=== PATIENT | male | born 1950 | race Asian ===

== ENCOUNTER 2017-10-06 13:16 | Emergency (ER) | payer BC ==
[2017-10-06 14:13] VITALS: BP 133/90
--- NOTE | 2017-10-06 14:30 | UC ---
Dizzy HPI HPI Summary: PT WAS WALKING AT WORK WHEN HE SUDDENLY BECAME DIZZY. SAT DOWN AND VOMITED X 1. FELT BETTER. GOT INTO A CAB AND CAME HERE. ONCE HERE STARTED TO FEEL DIZZY AGAIN. AT TIME OF EVALUATION PT STATES IT IS MOSTLY RESOLVED. STATES IT WAS WORSE WITH POSITION CHANGE. DENIES CP, SOB. NO FEVER OR VISUAL DISTURBANCES. STATES HE JUST FEELS A BIT TIRED NOW AND WANTS TO REST. NO SLURRING OF SPEECH OR FOCAL WEAKNESS. DENIES TINNITIS OR HEARING LOSS. - History Of Current Complaint Chief Complaint: UCGeneralIllness Stated Complaint: DIZZY Time Seen by Provider: 10/06/17 14:01 Hx Obtained From: Patient Onset/Duration: Sudden Onset, Lasting Minutes, Resolved Severity Initially: Moderate Severity Currently: None Pain Intensity: 0 Pain Scale Used: 0-10 Numeric Character: Lightheaded, Dizzy Aggravating Factor(s): Position Change Alleviating Factor(s): Rest Associated Signs And Symptoms: Positive: Vomiting. Negative: Diaphoresis, Tinnitus, Chest Pain, SOB, Palpitations, Unsteady Gait, Visual Changes, Change In Medication - Allergies/Home Medications Allergies/Adverse Reactions: Allergies Allergy/AdvReac Type Severity Reaction Status Date / Time No Known Allergies Allergy Verified 02/04/15 09:05 PMH/Surg Hx/FS Hx/Imm Hx Endocrine History: Diabetes Cardiovascular History: Hypertension - Surgical History Surgical History: Yes Surgery Procedure, Year, and Place: 25 YEARS AGO- EYE SURGERY. 10 YEARS AGO- HERNIA REPAIR - Family History Known Family History: Positive: Hypertension - Social History Alcohol Use: None Substance Use Type: None Smoking Status (MU): Never Smoked Tobacco Review of Systems Constitutional: Negative Skin: Negative Eyes: Negative Respiratory: Negative Cardiovascular: Negative Gastrointestinal: Vomiting Neurological: Other - DIZZY All Other Systems Reviewed And Are Negative: Yes Physical Exam Triage Information Reviewed: Yes Appearance: No Pain Distress, Well-Nourished, Ill-Appearing - MILD Vital Signs: Initial Vital Signs Temp 97.3 F 10/06/17 13:57 Pulse 78 10/06/17 13:57 Resp 16 10/06/17 13:57 BP 133/90 10/06/17 13:57 Pulse Ox 98 10/06/17 13:57 Vital Signs Reviewed: Yes Eyes: Positive: Conjunctiva Clear ENT: Positive: Hearing grossly normal, Pharynx normal, TMs normal Neck: Positive: Supple, Nontender, No Lymphadenopathy Respiratory Exam: Normal Cardiovascular Exam: Normal Abdomen Description: Positive: Soft Musculoskeletal: Positive: No Edema Neurological: Positive: Alert Psychological: Positive: Age Appropriate Behavior, Other: - NO NYSTAGMUS. SX NOT INVOKED WITH HEAD MOVEMENT Skin: Negative: rashes Diagnostics - EKG Cardiac Rate: NL Cardiac Rhythm: Sinus: Normal Ectopy: None ST Segment: Normal Dizzy Course/Dx - Course Course Of Treatment: PT DECLINES TRANSFER TO ER. WANTS TO GO HOME AND REST. ADVISED TO STAY WELL HYDRATED AND LOW THRESHOLD FOR GOING TO ER IF SX RECUR OR WORSEN. WORK NOTE PROVIDED. - Differential Dx/Diagnosis Provider Diagnoses: DIZZINESS, NOS Discharge - Discharge Plan Condition: Stable Disposition: HOME Prescriptions: Meclizine HCl [Meclizine 25] 25 mg PO TID PRN #30 tab PRN Reason: Dizziness Ondansetron ODT TAB* [Zofran Odt TAB*] 4 mg PO Q6H PRN #20 tab.odt PRN Reason: Nausea/Vomiting Patient Education Materials: Dizziness (ED) Forms: *Work Release Referrals: Sebastien Devries MD [Primary Care Provider] - 1 Week Additional Instructions: Dizziness, non-specific: Dizziness means a sense of severe lightheadedness or instability. It can be a symptom of many different diseases, and is a side effect of many medicines. It can be caused by high blood pressure, or by low blood pressure. It can even be a symptom of anxiety. Dizziness can also happen to perfectly healthy people. Sometimes it's caused by over-exercise, mild dehydration, lack of sleep, or poor nutrition. Sometimes we find no explanation. We try to diagnose the exact cause of dizziness, such as dehydration, fever , diabetes, low heart rate, etc. Sometimes it's obvious right away. If not, we do testing. At this time, there's no evidence of a serious problem requiring hospitalization. You should get enough rest, exercise moderately, and get plenty of fluids. Continue your usual medicines unless the doctor has specifically told you to change them. When you feel the first symptoms suggesting you might faint, sit or squat down as quickly as you can. If symptoms don't go away quickly, lie down. Call the doctor or return if you are worsening or if new symptoms develop. LOW THRESHOLD FOR GOING TO THE ER. GO WITHOUT FAIL IF YOUR DIZZINESS RETURNS OR IF YOU DEVELOP FEVER, CHEST PAIN, SOB, NAUSEA OR ANY OTHER CONCERNING SYMPTOMS.
== END 2017-10-06 14:43 | disposition home or self-care (01) ==
LOC: UCEAST 13:16
DX: R42 Dizziness and giddiness (principal); R11.11 Vomiting without nausea
CPT/HCPCS: 93005; 99212; G0463

== ENCOUNTER 2019-04-17 10:08 | Day surgery (SDC) | payer OTHER ==
[~2019-04-17 10:08] MED LIST: Acetaminophen TAB* 325 MG PO PRN; Buffered Lidocaine 0.9% SYRIN* 5 ML/SYR SYRINGE INTRADERM ONE; Buffered Lidocaine 1% SYRIN* 1 ML/SYRINGE INTRADERM ONE
[2019-04-17] MEDS ORDERED: Proparacaine 0.5% OPHTH.SOL* 15 ML BTL ONE (10:21)
[2019-04-17] MEDS ORDERED: Midazolam* 1 MG/ML 2 ML VIAL (2 MG) ONE ×2 (12:04→13:23)
[2019-04-17 13:40] VITALS: BP 113/73
--- NOTE | 2019-04-17 14:42 | OP ---
DATE OF OPERATION: 04/17/19 - [facility] DATE OF : 54 SURGEON: Jonny Webster MD ANESTHESIA: Local with MAC. PREOPERATIVE DIAGNOSIS: Pterygium, left eye. POSTOPERATIVE DIAGNOSIS: Pterygium, left eye. OPERATIVE PROCEDURE: Excision of pterygium left eye with amniotic membrane. COMPLICATIONS: None. DESCRIPTION OF PROCEDURE: The patient was given topical anesthesia in the operating room and then prepped and draped in the usual sterile fashion. Lid speculum was placed. 2% lidocaine with epinephrine was injected subconjunctivally underneath the pterygium and also given topically. The pterygium was excised off the cornea using a 15 blade and from the conjunctival area using a Vanna scissors in its entirety. The hemostasis was achieved with low temp cautery. Amniotic membrane was cut to size and sutured with 8-0 Vicryl sutures to the conjunctiva and the corneal limbus. Topical Maxitrol drops were given. Bandage, contact lens and the eye was patched. [id number]/[facility] #: [id number] [facility]
== END 2019-04-17 14:00 | disposition home or self-care (01) ==
LOC: OREAST 10:08
PROVIDERS: ATTEND Specialist
DX: H11.012 Amyloid pterygium of left eye (principal); E11.9 Type 2 diabetes mellitus without complications; I10 Essential (primary) hypertension; E78.5 Hyperlipidemia, unspecified
CPT/HCPCS: 88304; A9270-GY; J2250; V2790